=== PATIENT | male | born 1995 | race Caucasian/White ===

== ENCOUNTER 2016-09-23 23:27 | Emergency (ER) | payer OTHER ==
[~2016-09-23] VITALS: Ht 185.4 cm; Wt 127.0 kg
[~2016-09-23 23:27] MED LIST: AMOXICILLIN500 M2 PO; ANAPROX DS550 MG PO; CYCLOBENZAPRINE10 MG PO; ROBITUSSIN AC 110 ML PO
[2016-09-23] MEDS ORDERED: PSEUDOEPHEDRINE60 MG PO (23:54)
[2016-09-23] MEDS ORDERED: AMOXICILLIN500 M2 PO (23:54)
[2016-09-23] MEDS ORDERED: ROBITUSSIN AC 110 ML PO (23:54)
== END 2016-09-24 00:20 | disposition home or self-care (01) ==
LOC: ED 23:27
DX: J32.9 Chronic sinusitis, unspecified (principal); J02.9 Acute pharyngitis, unspecified; F17.200 Nicotine dependence, unspecified, uncomplicated

== ENCOUNTER 2016-11-07 15:12 | Emergency (ER) | payer OTHER ==
[~2016-11-07] VITALS: Ht 185.4 cm; Wt 113.4 kg
[~2016-11-07 15:12] MED LIST changes: +PSEUDOEPHEDRINE60 MG PO
[2016-11-07 16:08] LABS: BILIRUBIN 1+ (NEGATIVE); BLOOD NEGATIVE (NEGATIVE); CLARITY CLEAR (CLEAR); COLOR YELLOW (YELLOW); GLUCOSE NEGATIVE (NEGATIVE); KETONE TRACE (NEGATIVE); LEUKO ESTERASE NEGATIVE (NEGATIVE); NITRITE NEGATIVE (NEGATIVE); PH 5.5 (5.0-9.0); PROTEIN TRACE (NEGATIVE); SPECIFIC GRAVITY >= 1.030 (1.005-1.030)
[2016-11-07 16:25] LABS: BACTERIA TRACE; MUCOUS TRACE; URINE REFLEX COMMENT NO (NO); WBC 0-2 wbc/hpf (0-5)
== END 2016-11-07 15:31 | disposition home or self-care (01) ==
LOC: ED 15:12
PROVIDERS: Nurse Practitioner Family
DX: Z20.2 Contact with and (suspected) exposure to infections with a predominantly sexual mode of transmission (principal); R03.0 Elevated blood-pressure reading, without diagnosis of hypertension; F17.200 Nicotine dependence, unspecified, uncomplicated; Z79.899 Other long term (current) drug therapy

== ENCOUNTER 2016-11-14 19:05 | Emergency (ER) | payer OTHER ==
[~2016-11-14] VITALS: Wt 99.8 kg
[2016-11-14] MEDS ORDERED: NAPROSYN500 MG PO (19:59)
== END 2016-11-14 19:43 | disposition home or self-care (01) ==
LOC: ED 19:05
DX: M79.641 Pain in right hand (principal); F17.200 Nicotine dependence, unspecified, uncomplicated; Z79.899 Other long term (current) drug therapy

== ENCOUNTER 2018-11-21 11:14 | Emergency (ER) | payer SELFPAY ==
[~2018-11-21] VITALS: Wt 104.3 kg
[~2018-11-21 11:14] MED LIST changes: +NAPROSYN500 MG PO
[2018-11-21] MEDS ORDERED: AMOXICILLIN500 M2 PO (11:44)
[2018-11-21] MEDS ORDERED: NAPROSYN500 MG PO (11:44)
== END 2018-11-21 11:50 | disposition home or self-care (01) ==
LOC: ED 11:14
DX: K02.9 Dental caries, unspecified (principal)